=== PATIENT | female | born 1985 | race Caucasian/White ===

== ENCOUNTER 2023-02-25 17:22 | Emergency (ER) | payer SELFPAY ==
[~2023-02-25] VITALS: Ht 165.1 cm; Wt 59.0 kg
--- NOTE | 2023-02-25 17:37 | NUR ---
seen and examined by
--- NOTE | 2023-02-25 17:40 | NUR ---
Pt's mother at the bedside.
--- NOTE | 2023-02-25 18:09 | NUR ---
MD Martinez currently talking to patient and family
[2023-02-25] MEDS ORDERED: NALO4SPR BNOSTRILS (18:11)
--- NOTE | 2023-02-25 18:20 | NUR ---
Patient discharged to home in stable condition. Written and verbal after care instructions given. Patient verbalizes understanding of instructions. Stressed follow up or return to ER for worsening s/s.
[2023-02-25 18:34] VITALS: BP 118/80
== END 2023-02-25 18:36 | disposition home or self-care (01) ==
LOC: ER 17:22
DX: T50.901A Poisoning by unspecified drugs, medicaments and biological substances, accidental (unintentional), initial encounter (principal); Z79.899 Other long term (current) drug therapy; Y92.89 Other specified places as the place of occurrence of the external cause
CPT/HCPCS: A4663